=== PATIENT | male | born 1945 | race Caucasian/White ===

== ENCOUNTER 2016-07-25 10:37 | Day surgery (SDC) | payer OTHER ==
[2016-07-25] MEDS ORDERED: LR 1,000 ML IV ONE (11:26)
[2016-07-25] MEDS ORDERED: LIDOCAINE 1% 5 ML SDV ID PRN (11:26)
[2016-07-25] MEDS ORDERED: fentaNYL 100 MCG/2 ML INJ ONE (12:19)
[2016-07-25] MEDS ORDERED: MIDAZOLAM 2 MG/2 ML VIAL ONE (12:19)
--- NOTE | 2016-07-25 14:14 | GPN ---
[f rep st] PROCEDURE NOTE PROCEDURE: Colonoscopy with biopsy and polypectomy. INDICATIONS: Personal history of large polyps removed in piecemeal, polypectomy fashion, June 2015. This is a followup to make sure there is no residual tissue. PREOPERATIVE DIAGNOSIS: Rule-out residual polyps versus other polyps. POSTOPERATIVE DIAGNOSES: 1. Two small residual polypoid areas in the cecum, status post snare removal. 2. Two other polyps noted in the ascending colon, status post cold snare removal. 3. Biopsies of area surrounding cecal polyps to make sure there is no adenomatous tissue. 4. Left side diverticulosis. INFORMED CONSENT: I had a detailed discussed with the patient regarding the procedure, alternatives, benefits, and risks, including bleeding, perforation, infection, and risks of medication. Informed consent was signed and witnessed. COMPLICATIONS: None immediate. MEDICATIONS USED: Versed 5 mg IV, fentanyl 100 mcg IV. DESCRIPTION OF PROCEDURE: Patient placed in the left lateral decubitus position. A visual and digital anorectal examination was performed. The video colonoscope was inserted via the rectum and advanced under visualization to the cecum, identified by the ileocecal valve, appendiceal orifice, and confluence of taenia. There was a small polypoid area in the cecal polyp was removed in total by cold snare. This measured only about 3-4 mm in total size. There was an additional polyp on the ileocecal valve fold that was also removed with cold snare. The surrounding tissue looked normal. I did biopsy to make sure there is no adenomatous tissue surrounding these polyps areas. The prep was fair. A fair amount of washing was obtained to get a good view. There was a fair amount of chyme in the right colon. I was able to wash and view an approximately 1 cm polyp in the ascending colon that was removed in total by cold snare. There appeared to an additional 5-6 mm polyp in the ascending colon that was also removed in total by cold snare. The patient did have left-sided diverticulosis. Retroflex examination was performed and normal. The endoscope was completely withdrawn, confirming the above findings. The patient tolerated the procedure well and was transferred to the recovery room in satisfactory condition. IMPRESSION: 1. Two small polypoid areas in the cecum, most likely representing previous areas of polypectomy. 2. Additional polyps in the ascending colon, status post cold snare removal. RECOMMENDATIONS: 1. Follow up all pathology. 2. Repeat colonoscopy in 1-2 years, depending on results of pathology. 3. High-fiber/high fluid diet. 4. There is no need to avoid seeds or nuts with diverticulosis. 5. Except as using for cardiac or stroke prevention, try to avoid aspirin and non-steroidal anti-inflammatory drugs. 6. Follow up with primary care physician as scheduled. Thank you for allowing me to participate in patient's healthcare. Do not hesitate to contact me for any questions. /[id number]/MODL MTDD
== END 2016-07-25 13:55 | disposition home or self-care (01) ==
LOC: FSGY 10:37
PROVIDERS: ATTEND Internal Medicine Gastroenterology
PROC: 0DBH8ZX Excision of Cecum, Via Natural or Artificial Opening Endoscopic, Diagnostic (ICD-10-PCS; principal; 2016-07-25 12:15)
PROC: 0DBK8ZX Excision of Ascending Colon, Via Natural or Artificial Opening Endoscopic, Diagnostic (ICD-10-PCS; principal; 2016-07-25 12:15)
DX: D12.0 Benign neoplasm of cecum (principal); D12.2 Benign neoplasm of ascending colon; K57.30 Diverticulosis of large intestine without perforation or abscess without bleeding
CPT/HCPCS: J2250; J3010